=== PATIENT | female | born 1990 | race Caucasian/White ===

== ENCOUNTER 2016-11-02 13:59 | Emergency (ER) | payer BC, MEDICAID ==
[2016-11-02 14:00] VITALS: BMI 32.3
[2016-11-02 14:08] VITALS: TEMP 98.1; O2SAT 100
[2016-11-02] MEDS ORDERED: Sodium Chloride 0.9% 1,000 ML IV ONE (14:33)
--- NOTE | 2016-11-02 14:41 | C.PDOC ---
History Of Present Illness Patient is a 26 year old female with a history of chronic back pain who presents to the ER with a complaint of lower abdominal pain. Patient states she awoke at 04:30 with pain and chills. Patient also reports having headache, dysuria and nausea. LMP is 10/06. Denies fever, diarrhea, or constipation. Time Seen by Provider: 11/02/16 14:28 Chief Complaint (Nursing): Abdominal Pain History Per: Patient History/Exam Limitations: no limitations Onset/Duration Of Symptoms: Hrs Associated Symptoms: Chills, Nausea, Urinary Symptoms (Dysuria). denies: Fever , Diarrhea, Constipation Past Medical History Reviewed: Historical Data, Nursing Documentation, Vital Signs Vital Signs: Last Vital Signs Temp 98.1 F 11/02/16 14:08 Pulse 74 11/02/16 17:25 Resp 20 11/02/16 17:25 BP 124/70 11/02/16 17:25 Pulse Ox 100 11/02/16 17:15 - Medical History PMH: Anxiety, Back Problems, Depression Surgical History: No Surg Hx - [facility] Procedures MONITORING NOS (04/08/15) MANUAL ASSIST DELIV NEC (04/08/15) Family History: States: Unknown Family Hx - Social History Hx Tobacco Use: No Hx Alcohol Use: No Hx Substance Use: No - Immunization History Hx Tetanus Toxoid Vaccination: No Hx Influenza Vaccination: No Hx Pneumococcal Vaccination: No Review Of Systems Constitutional: Positive for: Chills. Negative for: Fever Cardiovascular: Negative for: Chest Pain, Palpitations Respiratory: Negative for: Cough, Shortness of Breath Gastrointestinal: Positive for: Nausea, Abdominal Pain (Lower). Negative for: Diarrhea, Constipation Genitourinary: Positive for: Dysuria Neurological: Positive for: Headache Physical Exam - Physical Exam Appears: Well, Non-toxic Skin: Normal Color, Warm, Dry Head: Atraumatic, Normacephalic Eye(s): bilateral: Normal Inspection, EOMI Oral Mucosa: Moist Neck: Normal ROM Chest: Symmetrical, No Tenderness Cardiovascular: Rhythm Regular, No Murmur Respiratory: Normal Breath Sounds, No Rales, No Rhonchi, No Wheezing Gastrointestinal/Abdominal: Soft, No Tenderness Extremity: Normal ROM, No Tenderness, No Deformity, No Swelling Neurological/Psych: Oriented x3, Normal Speech, Other (No focal deficits) ED Course And Treatment - Laboratory Results Result Diagrams: 11/02/16 15:09 11/02/16 15:09 Lab Interpretation: No Acute Changes O2 Sat by Pulse Oximetry: 100 (Room air) Pulse Ox Interpretation: Normal - CT Scan/US Abdominal/pelvic/transvaginal US Other Rad Studies (CT/US): Read By Radiologist, Radiology Report Reviewed CT/US Interpretation: Indication: with pain. Comparison: Ob transvaginal ultrasound performed 08/16/14. Technique: Real-time transabdominal pelvic ultrasound was performed. In addition a transvaginal pelvic ultrasound was necessary to better depict pelvic anatomy. Findings: The uterus measures approximately 8.5 x 5.6 x 7.0 cm. Anteverted. Endometrial thickness measures approximately 2.0 cm. No intrauterine gestational sac identified. Cervix length measures approximately 2.9 cm. The right ovary measures approximately 4.2 x 3.1 x 4.1 cm. Right adnexal complex cyst measures approximately 2.5 x 2.3 x 2.3 cm. The left ovary measures approximately 3.4 x 2.5 x 2.5 cm. Blood flow is demonstrated to both ovaries. Small pelvic free fluid. Impression: Thickened endometrium measuring approximately 2 cm in diameter. No evidence of intrauterine gestational sac. If indeed the patient is based on serum beta HCG values, the sonographic findings represent either: Very early IUP; embryonic demise; ectopic gestation. Follow-up with serial quantitative serum beta HCG measurements and post OBGYN follow-up is mandatory, since ectopic gestation cannot be excluded based only on sonographic findings. Complex right adnexal cyst, likely ovarian measures approximately 2.5 x 2.3 x 2.3 cm. Attention on short-term follow-up. Small pelvic free fluid. Medical Decision Making Medical Decision Making: Impression: 26 year old female with lower abdominal pain Plan: * Blood work * Urinalysis * IV fluids * Toradol * US Progress: Urinalysis was positive for , US will be ordered. US Impression: Thickened endometrium measuring approximately 2 cm in diameter. No evidence of intrauterine gestational sac. If indeed the patient is based on serum beta HCG values, the sonographic findings represent either: Very early IUP; embryonic demise; ectopic gestation. Follow-up with serial quantitative serum beta HCG measurements and post OBGYN follow-up is mandatory, since ectopic gestation cannot be excluded based only on sonographic findings. Complex right adnexal cyst, likely ovarian measures approximately 2.5 x 2.3 x 2.3 cm. Attention on short-term follow-up. Small pelvic free fluid. Patient remained afebrile and in no acute distress. I explained results of positive test and US show no IUP which can indicate early or ectopic gestation. I instruct patient close follow up is necessary for repeat BHCG in one week. Patient understands and given copy of results. Will treat for UTI with Macrobid. Instructed to return to ER if symptoms worsen or new symptoms arise. Disposition Counseled Patient/Family Regarding: Diagnosis, Need For Followup, Rx Given - Disposition Referrals: [facility] [Outside] [facility] [Outside] [facility] [Outside] Disposition: HOME/ ROUTINE Disposition Time: 17:13 Condition: STABLE Additional Instructions: Your labs show urinary tract infection for which you must take antibiotic twice daily for one week and drink water. Your labs show very early . Ultrasound does not show uterine however this may be due to early . You must follow up with mailmaster in one week for repeat bloodwork. Prescriptions: Nitrofurantoin Macrocrystals [Macrobid] 1 cap PO BID #14 cap Instructions: Urinary Tract Infection in (ED), Threatened Miscarriage (ED) - POA Present On Arrival: None - Clinical Impression Clinical Impression: Threatened in early , UTI (urinary tract infection), Positive test - Scribe Statement The provider has reviewed the documentation as recorded by the Scribe Bruno Castaneda All medical record entries made by the Scribe were at my direction and personally dictated by me. I have reviewed the chart and agree that the record accurately reflects my personal performance of the history, physical exam, medical decision making, and the department course for this patient. I have also personally directed, reviewed, and agree with the discharge instructions and disposition.
[2016-11-02 15:02] LABS: RBC URINE 1 /hpf (0-3); URINE BACTERIA RARE (<OCC); URINE BILIRUBIN NEGATIVE (NEGATIVE); URINE BLOOD NEGATIVE (NEGATIVE); URINE COLOR Yellow (YELLOW); URINE GLUCOSE (UA) NORMAL (Normal); URINE KETONE NEGATIVE (NEGATIVE); URINE LEUKOCYTE ESTERASE 3+ Leu/uL (Negative); URINE PROTEIN 1+ mg/dL (NEGATIVE); URINE UROBILINOGEN NORMAL mg/dL (0.2-1.0); WBC URINE 276 /hpf (0-5)
[2016-11-02 15:12] LABS: BASO # 0.1 K/uL (0.0-0.2); BASO % 0.6 % (0.0-2.0); EOS # 0.1 K/uL (0.0-0.7); EOS % 1.2 % (0.0-4.0); HEMATOCRIT 37.9 % (34.0-47.0); LYMPH # 2.3 K/uL (1.0-4.3); LYMPH % 21.3 % (20.0-40.0); MEAN CELL VOLUME 89.4 fL (81.0-99.0); MEAN CORPUSCULAR HEMOGLOBIN 29.9 pg (27.0-31.0); MEAN CORPUSCULAR HGB CONC 33.5 g/dL (33.0-37.0); MEAN PLATELET VOLUME 8.9 fL (7.2-11.7); MONO # 0.7 K/uL (0.0-0.8); MONO % 6.1 % (0.0-10.0); RED CELL DISTRIBUTION WIDTH 12.7 % (11.5-14.5)
[2016-11-02 15:20] LABS: CHLORIDE 101 mmol/L (98-107); POTASSIUM 4.2 mmol/L (3.6-5.2); SODIUM 138 mmol/L (132-148)
[2016-11-02 15:23] LABS: ALB/GLOB RATIO 1.4 (1.0-2.1); ALKALINE PHOSPHATASE 53 U/L (38-126); AST/SGOT 17 U/L (14-36); BILIRUBIN,TOTAL 0.3 mg/dL (0.2-1.3); BLOOD UREA NITROGEN 11 mg/dL (7-17); CALCIUM 9.1 mg/dl (8.6-10.4); CARBON DIOXIDE 26 mmol/L (22-30); GFR AFRICAN-AMERICAN > 60; GLUCOSE,RANDOM 82 mg/dL (65-105); TOTAL PROTEIN 7.7 g/dL (6.3-8.3)
[2016-11-02 15:24] LABS: ALT/SGPT 11 U/L (9-52)
--- NOTE | 2016-11-02 16:56 | US ---
Indication: with pain Comparison: Ob transvaginal ultrasound performed 08/16/14 Technique: Real-time transabdominal pelvic ultrasound was performed. In addition a transvaginal pelvic ultrasound was necessary to better depict pelvic anatomy Findings: The uterus measures approximately 8.5 x 5.6 x 7.0 cm. Anteverted. Endometrial thickness measures approximately 2.0 cm. No intrauterine gestational sac identified. Cervix length measures approximately 2.9 cm. The right ovary measures approximately 4.2 x 3.1 x 4.1 cm. Right adnexal complex cyst measures approximately 2.5 x 2.3 x 2.3 cm. The left ovary measures approximately 3.4 x 2.5 x 2.5 cm. Blood flow is demonstrated to both ovaries. Small pelvic free fluid. Impression: Thickened endometrium measuring approximately 2 cm in diameter. No evidence of intrauterine gestational sac. If indeed the patient is based on serum beta HCG values, the sonographic findings represent either: Very early IUP; embryonic demise; ectopic gestation. Follow-up with serial quantitative serum beta HCG measurements and post OBGYN follow-up is mandatory, since ectopic gestation cannot be excluded based only on sonographic findings. Complex right adnexal cyst, likely ovarian measures approximately 2.5 x 2.3 x 2.3 cm. Attention on short-term follow-up. Small pelvic free fluid.
[2016-11-02 17:28] VITALS: BP 124/70; PULSE 74; RESP 20
== END 2016-11-02 17:25 | disposition home or self-care (01) ==
LOC: C.ER 13:59
DX: O20.0 Threatened abortion (principal); O23.41 Unspecified infection of urinary tract in pregnancy, first trimester; Z3A.00 Weeks of gestation of pregnancy not specified
CPT/HCPCS: 76830; 76856; 80053; 81001; 84702; 84703; 85025; 96374; 99285; J1885; J7040

== ENCOUNTER 2017-08-05 23:36 | Emergency (ER) | payer MEDICAID, OTHER ==
[2017-08-05 23:37] VITALS: BMI 32.3
[2017-08-05 23:56] VITALS: BP 125/86; PULSE 75; RESP 18; TEMP 98.3; O2SAT 99
[2017-08-06 00:19] LABS: HCG,QUALITATIVE URINE NEGATIVE (NEGATIVE)
[2017-08-06 00:25] LABS: SQUAMOUS EPITHIAL 2 /hpf (0-5); URINE BILIRUBIN NEGATIVE (NEGATIVE); URINE BLOOD 2+ (NEGATIVE); URINE CLARITY Turbid (Clear); URINE COLOR Amber (YELLOW); URINE GLUCOSE (UA) NORMAL (Normal); URINE LEUKOCYTE ESTERASE 3+ Leu/uL (Negative); URINE NITRATE NEGATIVE (NEGATIVE); URINE PROTEIN 2+ mg/dL (NEGATIVE); WBC CLUMPS MANY /hpf
--- NOTE | 2017-08-06 01:15 | C.PDOC ---
History Of Present Illness 26 year old female presents to the ER with a complaint of dysuria and feeling "funny", as if she has a UTI. Patient reports she gave approximately 3 weeks ago and is currently breast feeding. Denies fever, chills, abdominal pain , or hematuria. Time Seen by Provider: 08/05/17 23:58 Chief Complaint (Nursing): Female Genitourinary History Per: Patient History/Exam Limitations: no limitations Onset/Duration Of Symptoms: Days Current Symptoms Are (Timing): Still Present Quality Of Discomfort: Unable To Describe Associated Symptoms: Urinary Symptoms (Dysuria). denies: Fever, Chills, Nausea , Vomiting Alleviating Factors: None Recent travel outside of the [place]: No Abnormal Vaginal Bleeding: No Past Medical History Reviewed: Historical Data, Nursing Documentation, Vital Signs Vital Signs: Last Vital Signs Temp 98.3 F 08/05/17 23:50 Pulse 75 08/05/17 23:50 Resp 18 08/05/17 23:50 BP 125/86 08/05/17 23:50 Pulse Ox 99 08/06/17 03:01 - Medical History PMH: Anxiety, Back Problems, Depression - [facility] Procedures MONITORING NOS (04/08/15) MANUAL ASSIST DELIV NEC (04/08/15) Family History: States: No Known Family Hx - Social History Hx Tobacco Use: No Hx Alcohol Use: No Hx Substance Use: No - Immunization History Hx Tetanus Toxoid Vaccination: No Hx Influenza Vaccination: No Hx Pneumococcal Vaccination: No Review Of Systems Constitutional: Negative for: Fever, Chills Gastrointestinal: Negative for: Nausea, Vomiting, Abdominal Pain, Diarrhea Genitourinary: Positive for: Dysuria. Negative for: Hematuria Physical Exam - Physical Exam Appears: Non-toxic, No Acute Distress Skin: Normal Color, Warm, Dry Head: Atraumatic, Normacephalic Eye(s): bilateral: Normal Inspection Oral Mucosa: Moist Chest: Symmetrical, No Tenderness Cardiovascular: Rhythm Regular Respiratory: Normal Breath Sounds, No Rales, No Rhonchi, No Wheezing Gastrointestinal/Abdominal: Soft, No Tenderness Neurological/Psych: Oriented x3, Normal Speech ED Course And Treatment O2 Sat by Pulse Oximetry: 99 (Room air) Pulse Ox Interpretation: Normal Medical Decision Making Medical Decision Making: UA and urine culture ordered, UA showed presence of a UTI. Will start on macrobid and pyridium, the patient reports that she is currently and was instructed to stop until finished with all the antibiotics. Disposition - Disposition Referrals: [facility] at [facility] [Outside] Disposition: HOME/ ROUTINE Disposition Time: 01:13 Condition: GOOD Additional Instructions: Follow up with the medical doctor/clinic within 1-2 days without fail. Return if worsened. Prescriptions: Nitrofurantoin Macrocrystals [Macrobid] 1 cap PO BID #14 cap Phenazopyridine HCl [Pyridium] 200 mg PO TID #7 tablet Instructions: Urinary Tract Infection in Women (ED) Forms: [employer] (Greenlandic) - Clinical Impression Clinical Impression: UTI (urinary tract infection) - PA / FOLDER GLUER OPERATOR / Resident Statement MD/DO has reviewed & agrees with the documentation as recorded. - Scribe Statement The provider has reviewed the documentation as recorded by the Scribmikki Castaneda All medical record entries made by the Tejasibmikki were at my direction and personally dictated by me. I have reviewed the chart and agree that the record accurately reflects my personal performance of the history, physical exam, medical decision making, and the department course for this patient. I have also personally directed, reviewed, and agree with the discharge instructions and disposition.
== END 2017-08-06 01:30 | disposition home or self-care (01) ==
LOC: C.ER 23:36 → SUPCPDRO 23:36 → C.ER 08-06 01:30
DX: N39.0 Urinary tract infection, site not specified (principal)

== ENCOUNTER 2017-09-13 22:51 | Emergency (ER) | payer OTHER ==
[2017-09-13 22:51] VITALS: BMI 32.3
[2017-09-13 23:17] VITALS: BP 104/70; PULSE 75; RESP 20; TEMP 97.6; O2SAT 96
[2017-09-13 23:32] LABS: HCG,QUALITATIVE URINE NEGATIVE (NEGATIVE)
[2017-09-13 23:35] LABS: SQUAMOUS EPITHIAL 2 /hpf (0-5); URINE BACTERIA MANY (<OCC); URINE BILIRUBIN NEGATIVE (NEGATIVE); URINE BLOOD 2+ (NEGATIVE); URINE CLARITY Hazy (Clear); URINE COLOR Yellow (YELLOW); URINE GLUCOSE (UA) NORMAL (Normal); URINE LEUKOCYTE ESTERASE 3+ Leu/uL (Negative); URINE NITRATE NEGATIVE (NEGATIVE); URINE PROTEIN 2+ mg/dL (NEGATIVE); URINE UROBILINOGEN NORMAL mg/dL (0.2-1.0)
--- NOTE | 2017-09-14 00:33 | C.PDOC ---
History Of Present Illness 26 year old female presents to the ER with a complaint of dysuria and hematuria for the past day. Patient reports she has a Hx of the same symptoms 1 month ago and was treated for UTI. Denies abdominal pain or vomiting. Time Seen by Provider: 09/13/17 23:47 Chief Complaint (Nursing): Female Genitourinary History Per: Patient History/Exam Limitations: no limitations Onset/Duration Of Symptoms: Days Current Symptoms Are (Timing): Still Present Quality Of Discomfort: Burning Associated Symptoms: Urinary Symptoms. denies: Vomiting, Other (Abdominal pain) Alleviating Factors: None Recent travel outside of the [place]: No Abnormal Vaginal Bleeding: No Past Medical History Reviewed: Historical Data, Nursing Documentation, Vital Signs Vital Signs: Last Vital Signs Temp 97.6 F 09/13/17 23:12 Pulse 75 09/13/17 23:12 Resp 20 09/13/17 23:12 BP 104/70 09/13/17 23:12 Pulse Ox 96 09/14/17 03:34 - Medical History PMH: Anxiety, Back Problems, Depression - [facility] Procedures MONITORING NOS (04/08/15) MANUAL ASSIST DELIV NEC (04/08/15) Family History: States: Unknown Family Hx - Social History Hx Tobacco Use: No Hx Alcohol Use: Yes Hx Substance Use: No - Immunization History Hx Tetanus Toxoid Vaccination: No Hx Influenza Vaccination: No Hx Pneumococcal Vaccination: No Review Of Systems Constitutional: Negative for: Fever, Chills Gastrointestinal: Negative for: Vomiting, Abdominal Pain Genitourinary: Positive for: Dysuria, Hematuria Physical Exam - Physical Exam Appears: Non-toxic, No Acute Distress Skin: Normal Color, Warm, Dry Head: Atraumatic, Normacephalic Eye(s): bilateral: Normal Inspection Gastrointestinal/Abdominal: Soft, No Tenderness, No Distention Back: No CVA Tenderness Neurological/Psych: Oriented x3, Normal Speech ED Course And Treatment O2 Sat by Pulse Oximetry: 96 (room air) Pulse Ox Interpretation: Normal Progress Note: UA sent, results were positive for UTI. Patient is resting comfortably in the ER in no distress, will started on pyridium, macrobid, and instructed to follow up with PMD for further evaluation or return if symptoms worsen. Disposition Counseled Patient/Family Regarding: Diagnosis, Need For Followup, Rx Given - Disposition Referrals: [facility] at [facility] [Outside] Disposition: HOME/ ROUTINE Disposition Time: 00:31 Condition: STABLE Additional Instructions: Please follow up with PMD or GOVERNMENT PROGRAM MANAGER Increase PO fluids Take meds as directed Return to ER if worse Prescriptions: Nitrofurantoin Macrocrystals [Macrobid] 1 cap PO BID #14 cap Phenazopyridine HCl [Pyridium] 100 mg PO TID #6 tab Instructions: Urinary Tract Infection, Adult (DC) Forms: [employer] (Mohawk) - Clinical Impression Clinical Impression: UTI (urinary tract infection) - PA / MUSIC THEORY TEACHER / Resident Statement MD/DO has reviewed & agrees with the documentation as recorded. - Scribe Statement The provider has reviewed the documentation as recorded by the Scribmikki Castaneda All medical record entries made by the Tejasibmikki were at my direction and personally dictated by me. I have reviewed the chart and agree that the record accurately reflects my personal performance of the history, physical exam, medical decision making, and the department course for this patient. I have also personally directed, reviewed, and agree with the discharge instructions and disposition.
== END 2017-09-14 00:50 | disposition home or self-care (01) ==
LOC: C.ER 22:51
DX: N39.0 Urinary tract infection, site not specified (principal)

== ENCOUNTER 2018-12-01 13:43 | Emergency (ER) | payer OTHER ==
[2018-12-01 13:44] VITALS: BMI 32.3
[2018-12-01 13:49] VITALS: BP 120/77; PULSE 82; RESP 18; TEMP 98.6; O2SAT 96
--- NOTE | 2018-12-01 14:12 | C.PDOC ---
History Of Present Illness 28 y/o female comes in complaining of suprapubic pain for 3 days with associated nausea and constipation. States that she typically gets these symptoms when shes and is concerned that she may be . She denies taking home test and is requesting a test here. Denies any fever, chills, headache, dizziness, chest pain, SOB, vomiting, or diarrhea. Time Seen by Provider: 12/01/18 13:56 Chief Complaint (Nursing): Abdominal Pain History Per: Patient History/Exam Limitations: no limitations Onset/Duration Of Symptoms: Days Current Symptoms Are (Timing): Still Present Past Medical History Reviewed: Historical Data, Nursing Documentation, Vital Signs Vital Signs: Last Vital Signs Temp 98.6 F 12/01/18 13:48 Pulse 82 12/01/18 13:48 Resp 18 12/01/18 13:48 BP 120/77 12/01/18 13:48 Pulse Ox 96 12/01/18 13:48 Primary Care Provider: FAMILY PROVIDER,NO - Medical History PMH: Anxiety, Back Problems, Depression Denies: Diabetes, Hepatitis, HIV, HTN, Chronic Kidney Disease, Seizures, Sexually Transmitted Disease - [facility] Procedures MONITORING NOS (04/08/15) MANUAL ASSIST DELIV NEC (04/08/15) Family History: States: No Known Family Hx - Social History Hx Tobacco Use: No Hx Alcohol Use: Yes Hx Substance Use: No - Immunization History Hx Tetanus Toxoid Vaccination: No Hx Influenza Vaccination: No Hx Pneumococcal Vaccination: No Review Of Systems Constitutional: Negative for: Fever, Chills Cardiovascular: Negative for: Chest Pain Respiratory: Negative for: Shortness of Breath Gastrointestinal: Positive for: Nausea, Abdominal Pain (suprapubic), Constipation. Negative for: Vomiting, Diarrhea Genitourinary: Negative for: Dysuria, Frequency Skin: Negative for: Rash Neurological: Negative for: Headache, Dizziness Physical Exam - Physical Exam Appears: Non-toxic, No Acute Distress Skin: Dry Head: Atraumatic, Normacephalic Eye(s): bilateral: Normal Inspection, PERRL Ear(s): Bilateral: Normal Nose: No Discharge Oral Mucosa: Moist Tongue: Normal Appearing Lips: Normal Appearing Throat: Normal, No Erythema, No Exudate Neck: Normal ROM, Supple Cardiovascular: Rhythm Regular Respiratory: Normal Breath Sounds, No Wheezing Gastrointestinal/Abdominal: Soft, Tenderness (slight suprapubic tenderness), No Guarding, No Rebound Extremity: Bilateral: Atraumatic, Normal ROM Neurological/Psych: Oriented x3, Normal Speech, Normal Cognition, Normal Motor, Normal Sensation Gait: Steady ED Course And Treatment O2 Sat by Pulse Oximetry: 96 (RA) Pulse Ox Interpretation: Normal Medical Decision Making Medical Decision Making: Plan: --Urinaylsis- neg --Urine Preg -negative symptoms likely due to constipation patient encouraged to eat more fiber Drink prune juice and increase water intake Metamucil daily to soften stool Follow up with PMD Return to ED if symptoms persist patient verbalized understanding and is in agreement with plan patient stable for discharge Disposition Counseled Patient/Family Regarding: Studies Performed, Diagnosis, Need For Followup, Rx Given - Disposition Referrals: [facility] [Outside] Disposition: HOME/ ROUTINE Disposition Time: 14:35 Condition: STABLE Additional Instructions: test is negative symptoms likely due to constipation Eat more fiber Drink prune juice and increase water intake Metamucil daily to soften stool Follow up with PMD Return to ED if symptoms persist Prescriptions: Ondansetron [Zofran] 4 mg PO TID PRN #15 tab PRN Reason: Nausea/Vomiting Psyllium Husk/Aspartame [Metamucil Fiber Singles Packet] 3.4 gm PO DAILY #30 powd.pack Instructions: Constipation, Adult (DC) Forms: [facility] (Pashto) - Clinical Impression Clinical Impression: Abdominal wall pain, Nausea, Constipation - PA / VOCATIONAL TRAINER / Resident Statement MD/DO has reviewed & agrees with the documentation as recorded. - Scribe Statement The provider has reviewed the documentation as recorded by the Scribmikki Rodgers All medical record entries made by the Tejasibmikki were at my direction and personally dictated by me. I have reviewed the chart and agree that the record accurately reflects my personal performance of the history, physical exam, medical decision making, and the department course for this patient. I have also personally directed, reviewed, and agree with the discharge instructions and disposition.
[2018-12-01 14:20] LABS: HCG,QUALITATIVE URINE NEGATIVE (NEGATIVE)
[2018-12-01 14:25] LABS: SQUAMOUS EPITHIAL 12 /hpf (0-5); URINE BILIRUBIN NEGATIVE (NEGATIVE); URINE BLOOD NEGATIVE (NEGATIVE); URINE CLARITY Hazy (Clear); URINE COLOR Yellow (YELLOW); URINE GLUCOSE (UA) NORMAL (Normal); URINE LEUKOCYTE ESTERASE NEG Leu/uL (Negative); URINE PROTEIN NEGATIVE (NEGATIVE); URINE UROBILINOGEN NORMAL mg/dL (0.2-1.0)
== END 2018-12-01 15:03 | disposition home or self-care (01) ==
LOC: C.ER 13:43
DX: R10.9 Unspecified abdominal pain (principal); R11.0 Nausea; K59.00 Constipation, unspecified